=== PATIENT | female | born 2000 | race Caucasian/White ===

== ENCOUNTER 2025-02-04 09:58 | Day surgery (SDC) | payer OTHER, SELFPAY ==
--- OUTSIDE RECORDS SUMMARY | 2025-01-21 15:47 | XMS_ITS | Encounter Summary ---
Author Organization [facility] Address [address] [place] [address] Phone Care Team Providers Care System Developer Associate Manager Name Role Phone Annetta Ledesma MD Primary Care Provider [phone] Reason for Visit * Reason Comments Med Refill Encounter Details Date Type Department Care Team (Late st Contact Info) Description 08/03/2018 Refill [facility] [place] [address] [place], [place] [id number] Annetta Ledesma MD [address], [place] [phone] Extrinsic asthma, unspecified asthma severity, unspecified whether complicated, unspecified whether persistent (Primary Dx) Social History Tobacco Use Types Packs/Day Years Used Date Smoking Tobacco: Never Comments:Never Smoker Comments Unknown Sex and Gender Information Value Date Recorded Sex Assigned at Not on file Legal Sex Female 6:19 PM EDT Gender Identity Not on file Sexual Orientation Straight 07/23/2019 1: 38 PM EDT documented as of this encounter Miscellaneous Notes * Telephone Encounter - Lori Alvarado LPN - 08/08/2018 4:30 PM EST Script request for proair HFA. Last [facility] 07/10/18 with TL. Script sent per protocol. documented in this encounter Plan of Treatment Not on file documented as of this encounter Visit Diagnoses Diagnosis Extrinsic asthma, unspecified asthma severity, unspecified whether complicated, unspecified whether persistent- Primary documented in this encounter Care Teams System Developer Associate Manager Relationship Specialty Start Date End Date Annetta Ledesma MD [address] [place] [address] PCP - General 01/31/18 01/06/22 documented as of this encounter
--- OUTSIDE RECORDS SUMMARY | 2025-01-21 15:47 | XMS_ITS | Encounter Summary ---
Author Organization [facility] Address [address] [place] [address] Phone Care Team Providers Care Applications Analyst Name Role Phone Annetta Ledesma MD Primary Care Provider [phone] Encounter Details Date Type Department Care Team (Late st Contact Info) Description 05/02/2011 Conversion Encounter [facility] - [place] [address] [place] [address] [place] [address] Social History Tobacco Use Types Packs/Day Years Used Date Smoking Tobacco: Never Assessed Comments Unknown Sex and Gender Information Value Date Recorded Sex Assigned at Not on file Legal Sex Female 6:19 PM EDT Gender Identity Not on file Sexual Orientation Straight 07/23/2019 1: 38 PM EDT documented as of this encounter Plan of Treatment Not on file documented as of this encounter Visit Diagnoses Not on filedocumented in this encounter Care Teams Applications Analyst Relationship Specialty Start Date End Date Annetta Ledesma MD [address] [place] [address] PCP - General 01/31/18 01/06/22 documented as of this encounter
--- OUTSIDE RECORDS SUMMARY | 2025-01-21 15:47 | XMS_ITS | Clinical Summary ---
Author Organization [facility] Address [address] [place], [place] [id number] Phone Care Team Providers Care Library Media Technician Name Role Phone Unavailable Primary Care Provider Unavailabl e Allergies Active Allergy Reactions Criticality Noted Date Comments Amoxicillin Amoxicillin-Pot Clavulanate Amphetamine-Dextroamphetamine Citalopram Guanfacine Isoflavones (Soy) Lactose Paroxetine Sulfa Antibiotics Medications HYDROXYZINE HCL PO Hydroxyzine HCl; 0; 05/09/2017; Active 7 Active SERTRALINE HCL PO Take by mouth. 3 Active sertraline 100 MG tablet TK 2 TS PO D 3 8 Active hydrOXYzine 25 MG capsule TK 1 C PO TID PRA 3 8 Active albuterol HFA 108 (90 Base) MCG/ACT inhalerIndicatio ns:Extrinsic asthma, unspecified asthma severity, unspecified whether complicated, unspecified whether persistent Inhale 2 puffs every 4 (four) hours as needed for wheezing. 1 Units 2 0 Active Active Problems Problem Noted Date Diagnosed Date Major depressive disorder 05/09/2017 Overview (07/06/2018): Depression (311) Onset: 05/09/2017 Added by: Shahida Toussaint Assessment & Plan (07/23/2019 8:37 PM EDT): Continue treatment and follow up with Dr. Tovar and Halle as directed. 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 Tovar and Halle as instructed. Bipolar I disorder 06/11/2015 Overview (07/06/2018): Bipolar disorder (296.7) Onset: 06/11/2015 Added by: Jaimie Johnson Learning disorder 05/02/2011 Overview (07/06/2018): Learning disorder (315) Onset: 05/02/2011 Added by: Jaimie Johnson Resolved Problems Problem Noted Date Diagnosed Date Resolved Date Other malaise and fatigue 09/12/2016 Overview (07/06/2018): Fatigue (780.79) Onset: 09/12/2016 Added by: Annetta Ledesma Dizziness and giddiness 09/12/201606/25 Overview (07/06/2018): Dizziness (780.4) Onset: 09/12/2016 Added by: Siria Carolina Cellulitis and abscess of face 06/20/2016 07/10/2018 Overview (07/06/2018): Cellulitis of the face (682.0) Onset: 06/20/2016 Added by: Siria Carolina Immunizations Immunization Administration Dates Next Due DTaP 5 12/25/2003, 0,02/01/1999,11/30,1998 H1N1 07/29/2009 HPV, Quadrivalent 09/02/2014,04/30/2014,12/20/19 13 Hep A, ped/adol 12/19/2012,09/01/2010 Hep B, ped/adol 04/22/1999,1998,1998 Hib (PRP-T) 10/25/1999, 9,1998,10/01 IPV 05/28/2007, 2,07/22/1999,11/30,1998 Influenza, injectable, quadr ivalent, preservative free 07/23/2019,07/10/2018,06/26/2017,06/21 Influenza, injectable, triva lent, preservative free 06/15/2009,06/12/2008 Influenza, intranasal, quadrivalent 09/02/2014 Influenza, intranasal, trivalent 013,10/05/2012,07/05/2011,06/30 MMR 12/25/2003,10/25/1999 Meningococcal B Trumenba 07/23/2019,07/10/2018 Meningococcal Conj (Menactra) MCV4P 06/11/2015,1 09/28/2008 Pneumococcal Conjugate 08/02/2000 Tdap 07/02/2017,07/29/2009 Varicella 09/01/2010,01/26/2000 Family History Medical History Relation Name Comments Anxiety disorder Father Hyperlipidemia Father Heart disease (Premature) Maternal Grandfather Asthma Maternal Grandmother Depression Maternal Grandmother Heart disease (Premature) Maternal Grandmother Hyperlipidemia Maternal Grandmother Hypertension Maternal Grandmother Obesity Maternal Grandmother ADD / ADHD Mother Anxiety disorder Mother Depression Mother Seizures Mother Hypertension Mother's Brother Hyperlipidemia Mother's Sister Hypertension Mother's Sister Obesity Mother's Sister Relation Name Status Comments Father Maternal Grandfather Maternal Grandmother Mother Mother's Brother Mother's Sister Social History Tobacco Use Types Packs/Day Years Used Date Smoking Tobacco: Never Comments:Never Smoker Hunger/Food Answer Date Recorded In the last 12 months, did y ou or your family ever eat less than you felt you should because there wasn't enough money for food? No 07/23/2019 Stable Housing Answer Date Recorded Are you worried that in the next 2 months you may not have stable housing? No 07/23/2019 Transportation Concerns Answer Date Rec orded In the last 12 months, have you or your family ever had to go without healthcare because you didn't have a way to get there? No 07/23/2019 Hazards in Home Answer Date Recorded Think about the place you li ve. Do you have problems with any of the following? Pests (mice or roaches), mold, no/not working smoke detectors, water leaks, no window guards. No 2018 Financing Utilities Answer Date Recorde d In the last 12 months, has t he electric, gas, oil, or water company threatened to shut off your services in your home? No 07/23/2019 Safety at Home Answer Date Recorded Are you or your family worried about feeling saf e in your home? No 07/23/2019 Outside Support Answer Date Recorded Do you feel that you need mo re support from other people or programs to help you care for yourself or your family? No 07/23/2019 Understanding Health Concerns Answer Da te Recorded Do you need help understandi ng your or your child's healthcare needs (diagnosis, medications, plan, etc.)? No 07/23/2019 Financing Health Concerns Answer Date R ecorded In the last 12 months, was t here a time when your child needed to see a doctor or get medications or supplies but could not because of cost? No 07/23/2019 Missing School or Work Answer Date Wyatt rded Did you or your child miss s chool or work because of a health problem that could have been avoided? No 07/23/2019 Comments Unknown Sex and Gender Information Value Date Recorded Sex Assigned at Not on file Legal Sex Female 6:19 PM EDT Gender Identity Not on file Sexual Orientation Straight 07/23/2019 1: 38 PM EDT Last Filed Vital Signs Vital Sign Reading Time Taken Comments Blood Pressure 110/78 07/23/2019 1:26 PM EDT Pulse 66 07/23/2019 1:26 PM EDT Temperature 36.2 ??C (97.1 ??F) 02/28/2017 12:43 PM E DT Respiratory Rate - - Oxygen Saturation 99% 07/23/2019 1:26 PM EDT Inhaled Oxygen Concentration - - Weight 64 kg (141 lb 3.2 oz) 07/23/2019 1:26 PM EDT Height 155.5 cm (5' 1.22 ) 07/23/2019 1:26 PM ED T Body Mass Index 26.49 07/23/2019 1:26 PM EDT Plan of Treatment Health Maintenance Due Date Last Done Comments Influenza Vaccines (#1) 2024 07/23/20 19, 07/10/2018, 06/26/2017, Additional history exists COVID-19 Vaccine ( - 2023-2 5 season) 2024 DTaP,Tdap,and Td Vaccines (8 - Td or Tdap) 07/02/2027 07/02/2017, 07/29/2009, 12/25/2003, Additional history exists Hepatitis B Vaccines Completed 04/22/1999, 1998, 1998 HIB Vaccines Completed 10/25/1999, 01/23, 1998, Additional history exists Pneumococcal Vaccine Completed 08/02/2000 MMR Vaccines Completed 12/25/2003, 10/25/1999 IPV Vaccines Completed 05/28/2007, 04/2002, 07/22/1999, Additional history exists Varicella Vaccines Completed 09/01/2010, 01/26/2000 Hepatitis A Vaccines Completed 12/19/2012, 09/01/20 10 HPV Vaccines Completed 09/02/2014, 02/2014, 12/19/2012 Meningococcal Vaccine Completed 06/11/2015, 009 Men B Vaccine Completed 07/23/2019, 07/10/2018 Procedures * Due to [place] Niche law, this organization might not be sharing sensitive test results. Procedure Name Priority Date/Time Associated Diagnosis Comments CHLAMYDIA AND GONORRHEA, AMPLIFIED Routine 07/23/2019 2:13 PM EDT Encounter for well adult exam without abnormal findings from Last 3 Months or Most Recently Relevant to Health Maintenance Results * Due to [place] state law, this organization might not be sharing sensitive test results. * Chlamydia and Gonorrhoea, Amplified (07/23/2019 2:13 PM EDT) Chlamydia Trachomatis, DNA Probe NEGATIVE (NEG) [facility] Comment: No Chlamydia Trachomatis RNA detected in this patient's sample ? (REFERENCE RANGE/NORMAL VALUE: NOT DETECTED) ? Note: This test uses drop hammer setter up- mediated amplification method to detect rRNA from C. Trachomatis URINE GC AMP PROBE NEGATIVE (NEG) [facility] Comment: No Neisseria Gonorrhoeae RNA detected in this patient's sample ? (REFERENCE RANGE/NORMAL VALUE: NOT DETECTED) ? NOTE: This test uses drop hammer setter up-mediated amplification method to detect rRNA from N.Gonorrhoeae. A negative result does not preclude infection. In the case of a negative urine result, testing of an endocervical(female) or urethral (male) specimen is recommended if there is high clinical suspicion of infection. Due to very high sensitivity of Nucleic Acid Amplification Test, false positive results may occur. Therefore, specimen handling is extremely important. In patients in whom the disease is unlikely, additional sample for testing should be considered after an initial positive result. The performance characteristics of this test have not been evaluated in children. The Aptima Combo2 assay is not intended for the evaluation of suspected sexual abuse or for other medico-legal indications. The ordering provider should assess if the patient had consensual sex without risk of sexual abuse. Consult the [facility] if needed. Contact phone number . Therapeutic failure or success cannot be determined with the Aptima Combo2 assay since nucleic acid may persist following appropriate antimicrobial therapy. The Centers for Disease Control and Prevention (CDC) recommends confirmatory retesting using culture or a different nucleic acid amplification test when positive results occur, if indicated. Testing performed or reported by [facility], a Service of [facility], [address], [place] [address] Urine 07/23/2019 2:13 PM EDT 07/23/2019 9:04 PM EDT us Annetta Ledesma MD LAB MICROBIOLOGY - GENERAL ORDE RABLES Final Result [facility] from Last 3 Months or Most Recently Relevant to Health Maintenance Insurance [facility]
[2025-01-31 12:58] VITALS: BMI 25.1
--- NOTE | 2025-02-03 10:10 | P.CONAN_ITS ---
Documented by User: Brenda Alvarez NP 02/03/25 10:11 HPI - Anesthesia Eval Consult details Narrative: 24yo F for Upper Endoscopy and Colonoscopy [facility] Past Medical History Medical History Heartburn OCD (obsessive compulsive disorder) Anxiety Surgical History Surgical History History of ankle surgery Social History Social History Patient Tobacco Use Status: Never used Tobacco Use of substances other than those prescribed or required for medical reasons: No Are you DNR?: No Advance Directives: No Advance Directives Information Provided: Yes Meds Allergies Allergy/AdvReac Type Severity Reaction Status Date / Time amoxicillin Allergy Unknown Unknown Verified 01/31/25 13:00 Penicillins Allergy Unknown Unknown Verified 01/31/25 13:00 Sulfa (Sulfonamide Allergy Unknown Unknown Verified 01/31/25 13:00 Antibiotics) Home Medications ?Medication ?Instructions ?Recorded ?Confirmed ?Last Taken ?Type hydroxyzine HCl 25 mg tablet 75 mg PO DAILY 01/31/25 01/31/25 Unknown History lorazepam 0.5 mg tablet 0.5 mg PO BID PRN anxiety 01/31/25 01/31/25 Unknown History sertraline 100 mg tablet 200 mg PO DAILY 01/31/25 01/31/25 Unknown History Exam Height,Weight and Vital Signs: Height 5 ft 1 in Weight 60.146 kg Assessment and Plan Assessment Anesthesia Assessment: Chart Reviewed Documented by User: Yaron Canales MD 02/06/25 11:33 [facility] Past Medical History Medical History Heartburn OCD (obsessive compulsive disorder) Anxiety Family History Family history of problems with anesthesia: No Surgical History Surgical History History of ankle surgery History of Problems with Anesthesia: No Social History Social History Patient Tobacco Use Status: Never used Tobacco Use of substances other than those prescribed or required for medical reasons: No Are you DNR?: No Advance Directives: No Advance Directives Information Provided: Yes Meds Allergies Allergy/AdvReac Type Severity Reaction Status Date / Time amoxicillin Allergy Unknown Unknown Verified 01/31/25 13:00 Penicillins Allergy Unknown Unknown Verified 01/31/25 13:00 Sulfa (Sulfonamide Allergy Unknown Unknown Verified 01/31/25 13:00 Antibiotics) Home Medications ?Medication ?Instructions ?Recorded ?Confirmed ?Last Taken ?Type hydroxyzine HCl 25 mg tablet 75 mg PO DAILY 01/31/25 01/31/25 Unknown History lorazepam 0.5 mg tablet 0.5 mg PO BID PRN anxiety 01/31/25 01/31/25 Unknown History sertraline 100 mg tablet 200 mg PO DAILY 01/31/25 01/31/25 Unknown History Exam Airway Mallampati Class: II TM Dist: >3cm Neck ROM: Full Loose/Missing/Broken Teeth: No Assessment and Plan Assessment Anesthesia Assessment: Anesthesia Plan Discussed Final Anesthetic Review Family History of Problems with Anesthesia: No History of Problems with Anesthesia: No NPO: Yes ASA Class: II Final Preanesthetic Review: No Changes in Pt Med Stat, Meds/Allgs Chart Reviewed, Consent Obtained/Reviewed and Anes Risks/Benef Reviewed Patient Risk: Low Procedure Risk: Low Anesthetic Plan Anesthetic Plan: MAC: Disposition: Standard PACU
[2025-02-04 10:21] VITALS: BMI 24.6
[2025-02-04 10:28] VITALS: BP 133/68; PULSE 80; RESP 17; TEMP 37; O2SAT 97
[2025-02-04 10:29] LABS: UPreg QC Valid YES; Urine Pregnancy NEGATIVE (NEGATIVE)
--- NOTE | 2025-02-04 10:32 | MHC.SHP ---
Pre-Procedural Eval Section A - 24 Hr Update-Section A only Date of Service: 02/04/25 The patient is an INPATIENT: No Changes since office visit: No Cold of Flu in the past 2 weeks, No New Medical Problems, No Changes in Medication and No Patient answered all questions The patient has been examined within 24 hours of the surgical procedure. The History & Physical has been completed within 30 days and I have reviewed it.: Yes Section B - Complete if H&P > 30 days Chief Complaint: Gastro-esophageal reflux disease without esophagit Allergies: Allergies Allergy/AdvReac Type Severity Reaction Status Date / Time amoxicillin Allergy Unknown Unknown Verified 01/31/25 13:00 Penicillins Allergy Unknown Unknown Verified 01/31/25 13:00 Sulfa (Sulfonamide Allergy Unknown Unknown Verified 01/31/25 13:00 Antibiotics) Plan I have reviewed the history and physical and performed a pertinent physical examination on my patient. No changes have occurred unless specified. Time Spent With Patient Time: Total time managing care of this patient today ____ minutes.
[2025-02-04] MEDS: Lactated Ringers 1,000 ML 100 ML IVCONT (10:34)
[2025-02-04 11:30] VITALS: BP 119/78; PULSE 81; RESP 18; TEMP 36.3; O2SAT 100
[2025-02-04 11:45] VITALS: BP 119/84; PULSE 66; RESP 17; TEMP 36.3; O2SAT 100
--- NOTE | 2025-02-04 12:40 | OP_ITS ---
DATE OF SERVICE: 02/04/2025 SURGEON: Reji Gao MD INDICATIONS: Gastroesophageal reflux disease and GI bleeding. PREOPERATIVE DIAGNOSIS: POSTOPERATIVE DIAGNOSIS: PROCEDURE PERFORMED: Upper endoscopy with biopsy, colonoscopy to the terminal ileum with biopsy. ESTIMATED BLOOD LOSS: COMPLICATIONS: ANESTHESIA: Monitored anesthesia care. ASSISTANTS: SPECIMENS: DESCRIPTION OF PROCEDURE: A history and physical performed. The risks and benefits of the procedure were explained to the patient. Informed consent was obtained. The patient was placed in the left lateral decubitus position. The Olympus video gastroscope was introduced into the esophagus, stomach, and duodenum. Examination was performed. The scope was removed. She was repositioned for colonoscopy. A digital rectal exam was performed and was found to be normal. The Olympus pediatric videocolonoscope was introduced into the rectum and advanced to the cecum. The cecum was identified by transillumination, palpation, and identification of ileocecal valve. Examination was performed. The scope was removed. She tolerated both procedures well and was returned recovery area in stable condition. FINDINGS: Upper endoscopy, esophagus: The esophagus was slightly irregular at the EG junction. There was no evidence of esophagitis. Biopsies were obtained from the EG junction. Stomach: The stomach showed no evidence of masses, ulcers, or polyps. Antral biopsies were obtained. Duodenum: The bulb and 2nd portion were normal. Colonoscopy: The terminal ileum was normal. This was biopsied. The visualized colonic mucosa was within normal limits without evidence of masses or ulcers. There was no evidence of colitis. The quality of the prep was good. Retroflexed examination showed some small internal hemorrhoids. IMPRESSION: 1. Normal upper endoscopy. 2. Normal colonoscopy. RECOMMENDATION: 1. Follow up the biopsy results. 2. Screening colonoscopy is recommended in 10 years for average-risk individuals for colon cancer screening starting at age 45. MD GIANNI Bourgeois/LARRY / [id number]
== END 2025-02-04 12:17 | disposition home or self-care (01) ==
PROVIDERS: Nurse Practitioner; PCP Nurse Practitioner Family; Visit Provider Internal Medicine Gastroenterology
PROC: (CPT 45380; principal; 2025-02-04 11:00)
DX: R19.4 Change in bowel habit (principal); R10.84 Generalized abdominal pain; K64.8 Other hemorrhoids; R19.7 Diarrhea, unspecified; K92.2 Gastrointestinal hemorrhage, unspecified; K21.9 Gastro-esophageal reflux disease without esophagitis; Z83.79 Family history of other diseases of the digestive system; F41.9 Anxiety disorder, unspecified; F42.9 Obsessive-compulsive disorder, unspecified; Z87.81 Personal history of (healed) traumatic fracture; Z79.899 Other long term (current) drug therapy; Z88.0 Allergy status to penicillin; Z88.1 Allergy status to other antibiotic agents; Z88.2 Allergy status to sulfonamides
CPT/HCPCS: 45380; 43239; 81025; 88305; 88313; J2003; J2704